=== PATIENT | female | born 1965 | race Two or more races ===

== ENCOUNTER 2021-06-29 16:06 | Emergency (ER) | payer OTHER ==
[~2021-06-29] VITALS: Ht 134.6 cm; Wt 62.1 kg
[2021-06-29] MEDS ORDERED: SYNTHROID100 MCG PO (16:46)
[2021-06-29] MEDS ORDERED: ZOLOFT20 MG/1 ML PO (16:49)
[2021-06-29] MEDS ORDERED: BACTRIM DS TAB1 EACH PO (20:30)
== END 2021-06-29 21:20 | disposition home or self-care (01) ==
LOC: ER 16:06
DX: R10.32 Left lower quadrant pain (principal); N39.0 Urinary tract infection, site not specified; N20.0 Calculus of kidney; N28.1 Cyst of kidney, acquired; I10 Essential (primary) hypertension; Z88.8 Allergy status to other drugs, medicaments and biological substances

== ENCOUNTER 2022-04-01 09:38 | Emergency (ER) | payer OTHER ==
[~2022-04-01] VITALS: Ht 165.1 cm; Wt 66.2 kg
[~2022-04-01 09:38] MED LIST: BACTRIM DS TAB1 EACH PO; SYNTHROID100 MCG PO; ZOLOFT20 MG/1 ML PO
[2022-04-01] MEDS ORDERED: PROAIR RESPICL90 MCG (09:58)
[2022-04-01] MEDS ORDERED: BACTRIM DS TAB1 EACH PO (12:58)
== END 2022-04-01 13:12 | disposition home or self-care (01) ==
LOC: ER 09:38
DX: N39.0 Urinary tract infection, site not specified (principal); Z88.8 Allergy status to other drugs, medicaments and biological substances

== ENCOUNTER 2024-01-11 08:45 | Emergency (ER) | payer OTHER ==
[~2024-01-11] VITALS: Ht 162.6 cm; Wt 63.5 kg
[~2024-01-11 08:45] MED LIST changes: +PROAIR RESPICL90 MCG
[2024-01-11] MEDS ORDERED: FAMOtidine 10 MG/ML (4ML VIAL) IV PUSH ONE (09:45)
[2024-01-11 10:17] LABS: HEMOGLOBIN 13.4 g/dL (12.0-15.00); MEAN CELL VOLUME 96.4 fL (80.00-100.00); MEAN CORPUSCULAR HGB CONC 34.2 g/dl (32.0-36.0); PLATELET COUNT 216 K/uL (150-450); RED BLOOD COUNT 4.05 M/uL (4.00-6.00); RED CELL DISTRIBUTION WIDTH 12.7 % (11.5-14.5)
[2024-01-11] MEDS ORDERED: PEPCID AC20 MG PO (12:16)
[2024-01-11] MEDS ORDERED: ZYRTEC10 MG PO (12:18)
== END 2024-01-11 12:58 | disposition home or self-care (01) ==
LOC: ER 08:45
PROVIDERS: General Practice
DX: R19.7 Diarrhea, unspecified (principal); J00 Acute nasopharyngitis [common cold]; Z20.822 Contact with and (suspected) exposure to COVID-19; E03.8 Other specified hypothyroidism; Z88.6 Allergy status to analgesic agent

== ENCOUNTER → 2024-01-16 | Emergency (ER) | payer OTHER ==
[~2024-01-16] VITALS: Ht 167.6 cm; Wt 81.6 kg
[~2024-01-16] MED LIST changes: +0.9 % SODIUM CHLORIDE 1,000 ML IV ONE; +0.9 % SODIUM CHLORIDE 1,000 ML IV SCH; +ACETAMINOPHEN 500 MG GEL..CAP PO PRN; +FAMOTIDINE/PF 20 MG in 0.9 % SODIUM CHLORIDE 8 ML IV PUSH ONE; +MEPERIDINE HCL/PF 50 MG/ML VIAL IM STA; +MORPHINE SULFATE 4 MG/ML VIAL IV ONE; +ONDANSETRON HCL 4 MG in 0.9 % SODIUM CHLORIDE 50 ML IV PRN; +PEPCID AC20 MG PO; +PIPERACILLIN/TAZOBACTAM SODIUM 3.375 GM VIAL IV ONE; +PIPERACILLIN/TAZOBACTAM SODIUM 3.375 GM in DEXTROSE 5 % IN WATER 100 ML IV SCH; +PROMETHAZINE HCL 50 MG/ML AMPUL IM STA; +TAMSULOSIN HCL 0.4 MG CAP PO ONE; +ZYRTEC10 MG PO
[2024-01-16 02:53] LABS: HEMATOCRIT 39.1 % (36.0-45.00); HEMOGLOBIN 12.9 g/dL (12.0-15.00); MEAN CELL VOLUME 95.7 fL (80.00-100.00); MEAN CORPUSCULAR HEMOGLOBIN 31.6 pg (27.00-32.0); PLATELET COUNT 207 K/uL (150-450); RED BLOOD COUNT 4.09 M/uL (4.00-6.00); RED CELL DISTRIBUTION WIDTH 12.5 % (11.5-14.5)
[2024-01-16 03:01] LABS: INR 0.95; PARTIAL THROMBOPLASTIN TIME 29.3 SECONDS (22.0-34.0); PROTHROMBIN TIME 10.4 SECONDS (9.0-11.5)
[2024-01-16 03:06] LABS: ALBUMIN 3.8 gm/dL (3.4-5.0); BILIRUBIN TOTAL 0.29 mg/dL (0.3-1.2); BILIRUBIN,CONJUGATED 0.11 mg/dL (0.0-0.2); BILIRUBIN,UNCONJUGATED 0.18 mg/dL (0.0-0.6); CALCIUM 8.9 mg/dL (8.5-10.1); CREATININE SERUM 0.95 mg/dL (0.55-1.02); GFR 60.63; GLOBULINA 4.7 G/DL (2.4-3.5); POTASSIUM 3.72 mEq/L (3.5-5.1); TOTAL PROTEIN 8.5 gm/dL (6.4-8.2)
[2024-01-16 03:20] LABS: PH,URINE 6.5 (5.0-8.0); URINE APPEARANCE Clear; URINE BILIRRUBIN Negative (NEGATIVE); URINE BLOOD NHT; URINE COLOR Yellow; URINE GLUCOSE Negative (NEGATIVE); URINE KETONE Negative (NEGATIVE); URINE LEUKOCYTE Moderate; URINE NITRATE Negative; URINE PROTEIN Negative (NEGATIVE); URINE UROBILINOGEN 0.2 E.U./dl
[2024-01-16 03:24] LABS: URINE BACTERIA 792.4 uL (0.0-1933); URINE EPITHELIAL CELLS 19.3 uL (0.0-38.8); URINE RBC 29.7 uL (0.0-20.8); URINE WBC 193.2 uL (0.0-23.2)
[2024-01-16 03:29] LABS: URINE CAST 0.15 uL (0.0-1.40)
== END | disposition designated cancer center or children's hospital (05) ==
LOC: ER 00:46
PROVIDERS: General Practice
DX: N20.1 Calculus of ureter (principal); R10.13 Epigastric pain; Z88.8 Allergy status to other drugs, medicaments and biological substances; N13.39 Other hydronephrosis; N39.0 Urinary tract infection, site not specified; B96.29 Other Escherichia coli [E. coli] as the cause of diseases classified elsewhere; Z16.11 Resistance to penicillins; K57.30 Diverticulosis of large intestine without perforation or abscess without bleeding